=== PATIENT | male | born 1940 | race Caucasian/White ===

== ENCOUNTER 2016-05-26 23:40 | Inpatient (IN) | payer OTHER, MEDICARE ==
[~2016-05-26] VITALS: Ht 185.4 cm; Wt 96.7 kg
[2016-05-27] MEDS ORDERED: SODIUM CHLORIDE 0.9% 1000ML 1,000 ML IV STA (00:13)
[2016-05-27 00:25] LABS: BASO % 0.6 %; BASO ABS # 0.06 K/uL (0-0.2); COMPLETE YES; EOS % 3.3 %; HEMATOCRIT 43.3 % (42-52); IG% 0.1 %; LYMPH % 37.8 %; LYMPH ABS # 3.79 K/uL (1.2-3.4); MEAN CELL VOLUME 83.4 fL (80-100); MEAN CORPUSCULAR HEMOGLOBIN 28.9 pg (25-34); MEAN CORPUSCULAR HGB CONC 34.6 g/dl (32-36); MEAN PLATELET VOLUME 9.6 fL (7.4-10.4); MONO % 8.7 %; NEUT % 49.5 %; PLATELET COUNT 288 K/uL (130-400); RED BLOOD COUNT 5.19 M/uL (4.7-6.1); WHITE BLOOD COUNT 10.02 K/uL (4.8-10.8)
[2016-05-27 00:37] LABS: PROTHROMBIN TIME (PATIENT) 10.5 SECONDS (9.0-12.0)
[2016-05-27 00:47] LABS: ALT/SGPT 38 U/L (12-78); AST/SGOT 20 U/L (15-37); BLOOD UREA NITROGEN 25 mg/dl (7-18); BUN/CREATININE RATIO 25.1 (10-20); CALCIUM 9.5 mg/dl (8.5-10.1); CARBON DIOXIDE 25 mmol/L (21-32); CHLORIDE 109 mmol/L (98-107); GLUCOSE 181 mg/dl (70-99); MAGNESIUM 1.9 mg/dl (1.8-2.4); POTASSIUM 3.8 mmol/L (3.5-5.1); SODIUM 144 mmol/L (136-145)
[2016-05-27] MEDS ORDERED: GABA-112 PO (00:50)
[2016-05-27] MEDS ORDERED: AMLO-110 PO (00:50)
[2016-05-27] MEDS ORDERED: GLC/500 PO (00:50)
[2016-05-27] MEDS ORDERED: FOLITAB21 PO (00:50)
[2016-05-27] MEDS ORDERED: FERR1TAB23 (00:50)
[2016-05-27] MEDS ORDERED: LOSA50TA6 PO (00:50)
[2016-05-27] MEDS ORDERED: OXYB5TAB PO (00:50)
[2016-05-27] MEDS ORDERED: CLOP1TAB15 PO (00:50)
[2016-05-27] MEDS ORDERED: CHOL2000 PO (00:50)
[2016-05-27] MEDS ORDERED: SIMV20TA2 PO (00:50)
[2016-05-27 00:55] LABS: ALKALINE PHOSPHATASE 95 U/L (45-117); CKMB/CK RATIO 2.4 (0-3.0)
--- NOTE | 2016-05-27 02:30 | EMERGENCY ROOM VISIT NOTE ---
History Report prepared by Roibjanneth: Nancy Avitia Under the Supervision of: Dr. Omar Gilliland D.O. First contact with patient: 00:06 Chief Complaint: STROKE SYMPTOMS Stated Complaint: STROKE SYMS History of Present Illness The patient is a 75 year old male who presents to the Emergency Room with complaints of stroke-like symptoms over the past few days. Per patient's , the patient has a history of a brain stem stroke. On Tuesday of this week, she noticed that he was having a slight left sided facial droop. He notes that he had a "water-like" appearance to his vision which has resolved. She called the patient's PCP and had an MRI scheduled. He had his MRI this morning as well as a carotid ultrasound. A few hours ago, the patient received a call to go to the emergency room because his MRI revealed that the patient may have had a stroke. Currently, he is feeling well other than some left sided weakness. He notes that he is able to walk normally other than some left leg discomfort which he attributes to chronic problems since a left knee surgery several months ago. He was put on Plavix on Tuesday. Source of History: patient, spouse/significant other Onset: Tuesday Position: other (global) Quality: other (stroke-like symptoms) Timing: other (persistent) Associated Symptoms: + weakness (left side) Note: Other symptoms: left facial droop Review of Systems See HPI for pertinent positives & negatives. A total of 10 systems reviewed and were otherwise negative. Past Medical & Surgical Medical Problems: (1) Diabetes (2) HTN (hypertension) (3) Stroke Family History Cancer Diabetes mellitus Gallbladder disease Heart disease Hypertension Kidney disease Lung disease Seizures No pertinent family history stated. Social History Smoking Status: Never Smoker Marital Status: Housing Status: lives with significant other Current/Historical Medications Scheduled Amlodipine (Norvasc), 5 MG PO DAILY Cholecalciferol (Vitamin D3), 1 CAP PO DAILY Clopidogrel (Plavix), 75 MG PO DAILY Folic Ajot-Cibblfnptz-Qlfmseuu (Folbic), 1 TAB PO DAILY Losartan Potassium (Cozaar), 1 TAB PO DAILY Metformin Hcl (Glucophage), 500 MG PO BID Oxybutynin Chloride (Oxybutynin Chloride Er), 1 TAB PO DAILY Simvastatin (Zocor), 1 TAB PO DAILY Miscellaneous Medications Ferrous Sulfate (Iron) Gabapentin (Neurontin), 100 MG PO Physical Exam Vital Signs Date Time Temp Pulse Resp B/P Pulse Ox O2 Delivery O2 Flow Rate FiO2 05/27/16 02:00 65 18 137/75 96 Room Air 05/27/16 01:00 73 18 129/71 94 Room Air 05/26/16 23:56 83 05/26/16 23:41 36.5 88 20 172/92 96 Room Air Physical Exam VITAL SIGNS: were reviewed as above. GENERAL:Non-toxic in appearance. SKIN: Warm dry and pink. HEAD: Normocephalic and atraumatic. OROPHARYNX: Is clear and moist NECK: Supple without lymphadenopathy or meningismus. LUNGS: clear. HEART: Regular rate and rhythm. ABDOMEN: Soft and nontender. EXTREMITIES: Warm and well perfused. NEUROLOGICALLY: Awake alert and oriented. There is no pronator drift. Cerebellar testing is within normal limits. There is no nystagmus. Minimal left lower facial droop, mostly appreciated by patients , not obvious on my exam. Speech is clear. Vision is grossly normal. MUSCULOSKELETAL: Good muscle tone. No evidence of trauma. Medical Decision & Procedures ER Provider Diagnostic Interpretation: Radiology results and stated below per my review and radiologist interpretation: Carotid artery US on 05/27/2016 at [facility]: Less than 50% stenosis of the bilateral internal carotid arteries. MRI of the brain at 1650 PM on 05/27/2016 at [facility]: acute to subacute small vessel infarct of the right ventral felisha, also a 2-3 mm subacute infarct right frontal white matter. CT HEAD: No acute intracranial hemorrhage. No evidence of intracranial mass, extra-axial fluid collection, or hydrocephalus. White matter hypodensities, which are nonspecific but are most likely related to moderate to severe chronic small vessel ischemic changes. Evaluation for acute ischemia limited in setting of extensive white matter hypodensities, but no evidence of acute territorial infarct. Global cerebral volume loss. Internal carotid artery calcifications. Visualized paranasal sinuses and mastoid air cells are clear. Radiologist: Michael Mejia MD. Read at 0032. Chest x-ray per my interpretation: No acute disease, no pneumonia or pneumothorax. Laboratory Results 05/27/16 00:13 Red Blood Count 5.19, Mean Corpuscular Volume 83.4, Mean Corpuscular Hemoglobin 28.9, Mean Corpuscular Hemoglobin Concent 34.6, Mean Platelet Volume 9.6, Neutrophils (%) (Auto) 49.5, Lymphocytes (%) (Auto) 37.8, Monocytes (%) (Auto) 8.7, Eosinophils (%) (Auto) 3.3, Basophils (%) (Auto) 0.6, Neutrophils # (Auto) 4.96, Lymphocytes # (Auto) 3.79, Monocytes # (Auto) 0.87, Eosinophils # (Auto) 0.33, Basophils # (Auto) 0.06 05/27/16 00:13 Test 05/27/16 00:13 White Blood Count 10.02 K/uL (4.8-10.8) Red Blood Count 5.19 M/uL (4.7-6.1) Hemoglobin 15.0 g/dL (14.0-18.0) Hematocrit 43.3 % (42-52) Mean Corpuscular Volume 83.4 fL (80-100) Mean Corpuscular Hemoglobin 28.9 pg (25-34) Mean Corpuscular Hemoglobin Concent 34.6 g/dl (32-36) Platelet Count 288 K/uL (130-400) Mean Platelet Volume 9.6 fL (7.4-10.4) Neutrophils (%) (Auto) 49.5 % Lymphocytes (%) (Auto) 37.8 % Monocytes (%) (Auto) 8.7 % Eosinophils (%) (Auto) 3.3 % Basophils (%) (Auto) 0.6 % Neutrophils # (Auto) 4.96 K/uL (1.4-6.5) Lymphocytes # (Auto) 3.79 K/uL (1.2-3.4) Monocytes # (Auto) 0.87 K/uL (0.11-0.59) Eosinophils # (Auto) 0.33 K/uL (0-0.5) Basophils # (Auto) 0.06 K/uL (0-0.2) RDW Standard Deviation 42.2 fL (36.4-46.3) RDW Coefficient of Variation 13.8 % (11.5-14.5) Immature Granulocyte % (Auto) 0.1 % Immature Granulocyte # (Auto) 0.01 K/uL (0.00-0.02) Prothrombin Time 10.5 SECONDS (9.0-12.0) Prothromb Time International Ratio 1.0 (0.9-1.1) Activated Partial Thromboplast Time 25.4 SECONDS (21.0-31.0) Partial Thromboplastin Ratio 1.0 Anion Gap 10.0 mmol/L (3-11) Est Creatinine Clear Calc Drug Dose 81.6 ml/min Estimated GFR () 85.6 Estimated GFR (Non- 73.8 BUN/Creatinine Ratio 25.1 (10-20) Calcium Level 9.5 mg/dl (8.5-10.1) Magnesium Level 1.9 mg/dl (1.8-2.4) Total Bilirubin 0.4 mg/dl (0.2-1) Direct Bilirubin 0.1 mg/dl (0-0.2) Aspartate Amino Transf (AST/SGOT) 20 U/L (15-37) Alanine Aminotransferase (ALT/SGPT) 38 U/L (12-78) Alkaline Phosphatase 95 U/L (45-117) Total Creatine Kinase 156 U/L (39-308) Creatine Kinase MB 3.7 ng/ml (0.5-3.6) Creatine Kinase MB Ratio 2.4 (0-3.0) Troponin I < 0.015 ng/ml (0-0.045) Total Protein 6.5 gm/dl (6.4-8.2) Albumin 3.8 gm/dl (3.4-5.0) Lipase 141 U/L (73-393) Thyroid Stimulating Hormone (TSH) 1.950 uIu/ml (0.300-4.500) Laboratory results as stated above per my review. Medications Administered Medications (Trade) Dose Ordered Sig/Effie Route Start Time Stop Time Status Last Admin Dose Admin Sodium Chloride (Nss 1000ml) 1,000 ml @ 999 mls/hr Q1H1M STAT IV 05/27/16 00:13 05/27/16 01:13 DC 05/27/16 00:13 999 MLS/HR ECG Indication: other (stroke symptoms) Rate (beats per minute): 76 Rhythm: sinus rhythm Findings: 1st degree AV block, no ectopy, other (no acute injury) ED Course 0008: Previous medical records from [facility] were reviewed. The patient was evaluated in room A9. A complete history and physical examination was performed. 0013: Ordered NSS 1000 ml @ 999 mls/hr IV. 0111: I discussed the case with Randi Pruitt Neurology. She recommended hospitalizing the patient. 0115: On reevaluation, the patient is resting comfortably. I discussed the results and findings with him. He verbalized agreement of the treatment plan. 0130: I discussed the case with Dr. Jan Villalta. The patient will be evaluated for further management. Medical Decision Differential includes acute coronary syndrome, myocardial infarction, CVA, TIA, anemia, infection, pneumonia, UTI, pyelonephritis, poor nutrition, dehydration, electrolyte disturbance,hypoglycemia. This is a 75-year-old male who presents to the ED with a chief complaint of a CVA. The patient had onset of a left facial droop on Tuesday. The patient was seen by the PCP and started on Plavix. He had an outpatient ultrasound of the carotid arteries and MRI of the brain today. The patient was told to come in to the ED tonight because of his abnormal MRI earlier today. The patient has no additional symptoms. His physical exam reveals no obvious findings. Neurological exam was also unremarkable. The feels there is a slight left facial droop but this is not obvious. Initial blood pressure was 172/92. The patient had an outpatient MRI that has been reviewed. Details above. There is evidence of 2 small subacute infarcts. CT scan of the brain did not show acute process. Small vessel disease was noted. Blood work is unremarkable. EKG shows a sinus rhythm. Chest x-ray did not show acute disease. I spoke with Dr. Salgado about the patient. She suggested patient be admitted. I spoke with Dr. Rueda who will see the patient for admission. Consults Time Called: 010 Consulting Physician: Randi Pruitt Neurology Returned Call: 011 I discussed the case with her. She recommended hospitalizing the patient. Additional Consults: Time Called: 011 Consulted Physician: Dr. Jan Bryan Hospitalist Returned Call: 013 Additional Comments: I discussed the case with him. The patient will be evaluated for further management. Impression Primary Impression: CVA (cerebral vascular accident) Scribe Attestation The scribe's documentation has been prepared under my direction and personally reviewed by me in its entirety. I confirm that the note above accurately reflects all work, treatment, procedures, and medical decision making performed by me. Departure Information Dispostion Being Evaluated By Hospitalist Referrals No Doctor, Assigned (PCP) Patient Instructions My [facility]
[2016-05-27 02:57] VITALS: O2SAT 97; Ht 185.4 cm; Wt 96.7 kg
[2016-05-27] MEDS ORDERED: PHARMACIST DISCHARGE MED REC CONSULT PRN (03:00)
[2016-05-27] MEDS ORDERED: ACETAMINOPHEN 325 MG TAB PO PRN (03:00)
[2016-05-27] MEDS ORDERED: TRAMADOL HCL 50 MG TAB PO PRN (03:00)
[2016-05-27] MEDS ORDERED: ONDANSETRON INJ 2 MG/ML 2 ML VIAL IV PRN (03:00)
[2016-05-27] MEDS ORDERED: MoRPHine SULFATE 4 MG/ML 1 ML CARP\\VIAL IV PRN (03:00)
[2016-05-27] MEDS ORDERED: NITROGLYCERIN 0.4 MG SL PER TAB CHARGE SL PRN (03:00)
[2016-05-27] MEDS ORDERED: GLUCOSE 40% GEL 15 GM TUBE PO PRN (03:00)
[2016-05-27] MEDS ORDERED: GLUCOSE 10 TABS/TUBE PO PRN (03:00)
[2016-05-27] MEDS ORDERED: LACTATED RINGER'S 1000ML 1,000 ML IV ONE (03:00)
[2016-05-27] MEDS ORDERED: DEXTROSE 50% 50 ML SYR IV PRN (03:00)
[2016-05-27] MEDS ORDERED: GLUCAGON FOR INJ 1 MG VIAL SQ PRN (03:00)
[2016-05-27] MEDS ORDERED: INSULIN GLARGINE SOLOSTAR 100 UNITS/ML 3 ML PEN SC ONE (03:15)
--- NOTE | 2016-05-27 04:27 | HISTORY & PHYSICAL EXAMINATION ---
DATE OF ADMISSION: 05/27/2016 PRIMARY CARE DOCTOR: Dr. Rayo. History obtained from the patient, patient's and records. CHIEF COMPLAINT: Stroke-like symptoms, abnormal MRI. 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 Recent confinement at [facility] for right pontine ischemic CVA sp TPA at [facility] ER last 12/2015. Px presented w/ some left sided weakness, slurred speech symptoms along w/ dysphasia/L blurred vision sx as per px/. Marked improvement of neurologic deficits. Some residual weakness on LUE as per px. Px discharged on aspirin and statin which patient has been compliant with. Three days ago, patient was noted by to have some drooping on the L lower face. px also noted some gait imbalance, unsteadiness leading to a fall. Some dizziness described as lightheadedness. No visual, vertigo sx. L side weaker than usual as per px. Px later seen at PCP's office that day. mild L facial droop on PCP exam as per note. Plavix added to px ASA. Outpx MRI brain, carotid dopplers scheculed yesterday at [facility]. Minimal improvement in deficits as per px/. Two nights ago px noted bladder incontinence. No fever/chills. MRI of the brain yesterday showed acute to subacute small vessel infarct right ventral felisha, 2-3 mm subacute age infarct right frontal white matter, chronic small vessel infarcts right lateral felisha and left thalamus. Recommend MRI head and neck for further evaluation of underlying etiology of infarcts. Large vertebral artery appears hypoplastic and the is slightly diminished suggestive of slow flow of proximal stenosis, occlusion. Carotid Dopplers were also done which showed bilateral stenosis of the ICA less than 50%. PX sent to the ER by PCP for abn MRI results. MEDICAL HISTORY: As above. elective L knee surgery contemplated 06/2016 at [facility] for worsening L knee OA. SURGERIES: Prostate robotic surgery, appendectomy, cholecystectomy. HOME MEDICATIONS: Include aspirin, Plavix, oxybutynin, Zocor, metformin, Cozaar, amlodipine, iron, Neurontin. ALLERGIES: No known drug allergies. FAMILY HISTORY: There is a family history of diabetes. PERSONAL AND SOCIAL HISTORY: Nonsmoker, no chronic intake of alcoholic beverages. Retired senior net engineer. REVIEW OF SYSTEMS: As per HPI. all other ROS negative PHYSICAL EXAMINATION: VITAL SIGNS: Blood pressure was noted to be 129/71, pulse rate 70, RR 18, temperature 36.5, sats 94 on room air. GENERAL: Noted to be slightly anxious, no respiratory distress, minimal dysarthria. SKIN: Normal color. HEENT: [place] palpebral conjunctiva. Dry mucosa. subtle facial droop, left. NECK: Supple, no JVD. CHEST: Clear to auscultation. HEART: RRR, no murmur. ABDOMEN: Soft. EXTREMITIES: No edema, chronic tenderness on the left knee. NEUROLOGIC: Subtle facial asymmetry, decreased strength on the left upper extremity; decreased strength on the LLE vs RLE (chronic as per px from chronic L knee OA as per px); gait and stance not assessed no pronator drift LABORATORY DATA: Hemoglobin was noted to be 15, white cells 9, platelets 288. Sodium 140, potassium 4.8, chloride 109, CO2 25, BUN 10, creatinine 1, glucose 181. Hemoglobin A1c from December 2015 was 6.8. IMAGING DATA: Chest x-ray, atelectasis. CT of the head showed no acute intracranial hemorrhage, white matter hypodensities unspecific EKG rate 75, normal sinus rhythm, first degree AV block. no ischemia ASSESSMENT: 1. Recurrent cerebrovascular accident. two subacute foci on new MRI Concern for embolic phenomenon Hx pontine cerebrovascular accident sp TPA (12/2015) 2. bladder incontinence ? secondary to cerebrovascular accident history of overactive bladder dysfunction as per records history of prostate cancer sp surgery 3. HTN, patient normotensive. 4. hyperlipidemia on statin tx 5. DM2 on oral meds well controlled as of recent outpx HgA1c 6. history of neuropathy 7. OLIVER, px currently not using CPAP ff technical issues 8. severe OA, L knee surgery at [facility] contemplated next month Px and frustrated that new stroke may lead to deferment of planned surgery PLAN: PCU neuro checks continue antiplatelet, statin meds Neurology consult. RE Recurrent CVA. ER MD already in touch with Dr. Beckham, neurologist money manager. She recommends MRA of the brain, 2D echo, tele monitoring. Further management as per Neurology. PT/OT eval Urology consult RE incontinence. ISS BG goal 140-180, px due for hemoglobin A1c check DVT prophylaxis, Lovenox subQ. Full code. MTDD
[2016-05-27 06:21] LABS: ESTIMATED AVERAGE GLUCOSE 163 mg/dl; HA1C FLAG Normal (Normal)
[2016-05-27] MEDS: INSULIN ASPART 100 UNITS/ML 3 ML PEN SC SCH ×4 (07:00→20:35)
--- NOTE | 2016-05-27 07:16 | DIAGNOSTIC IMAGING REPORT ---
CT SCAN OF THE BRAIN WITHOUT IV CONTRAST CLINICAL HISTORY: Change in mental status. Weakness. COMPARISON STUDY: No priors. TECHNIQUE: Unenhanced axial CT scan of the brain is performed from the vertex to the skull base. CT DOSE: 614.27 mGy.cm FINDINGS: Brain parenchyma: There are age-related involutional changes noting moderate patchy subcortical and periventricular microangiopathic change. There is no hemorrhage, mass effect, or evidence of acute territorial ischemia by CT criteria. Luu-white matter is preserved. No extra-axial fluid collection is seen. Ventricles, sulci, cisterns: Prominent secondary to involutional change. Intracranial vasculature: There is atherosclerotic calcification of the cavernous carotid and vertebral arteries. Calvarium: Unremarkable. Sinuses and mastoids: The visualized paranasal sinuses are clear. The mastoid air cells are well pneumatized. Orbits: The bony orbits are grossly intact. IMPRESSION: Senescent changes as above with no hemorrhage, mass effect, or evidence of acute territorial ischemia by CT criteria. Electronically signed by: Aaron Castorena M.D. 05/27/2016 7:15 AM Dictated Date/Time: 05/27/2016 7:13 AM
--- NOTE | 2016-05-27 07:54 | DIAGNOSTIC IMAGING REPORT ---
SINGLE VIEW CHEST CLINICAL HISTORY: Weakness. Change in mental status. FINDINGS: An AP, portable, upright chest radiograph is obtained. No prior studies are available for comparison at the time of dictation. The examination is degraded by portable technique and patient rotation. The heart is enlarged and there is mild atherosclerotic calcification of the thoracic aorta. There are low lung volumes and bibasilar atelectasis. Trace pleural effusions are suspected. No airspace consolidation is identified typical for pneumonia. No pneumothorax is seen. The skeletal structures are osteopenic. The bony thorax is grossly intact. IMPRESSION: 1. Cardiac enlargement without radiographic evidence of congestive failure. 2. Low lung volumes and bibasilar atelectasis. 3. Suspect trace pleural effusions. There is no airspace consolidation identified typical for pneumonia. Electronically signed by: Aaron Castorena M.D. 05/27/2016 7:53 AM Dictated Date/Time: 05/27/2016 7:51 AM
[2016-05-27 08:00] VITALS: BP 155/77; PULSE 64; TEMP 36.6; O2SAT 97; O2SAT 98
[2016-05-27] MEDS: GABAPENTIN 100 MG CAP PO SCH ×3 (08:04→20:38)
[2016-05-27] MEDS: CLOPIDOGREL BISULFATE 75 MG TAB PO SCH (08:04)
[2016-05-27] MEDS: ENOXAPARIN 40 MG/0.4 ML SYR SC SCH (08:29)
[2016-05-27] MEDS ORDERED: OXYBUTYNIN CHLORIDE 5 MG TABCR PO SCH (09:00)
[2016-05-27 11:06] VITALS: BP 141/78; PULSE 62; TEMP 37; O2SAT 95
[2016-05-27 12:30] LABS: URINE APPEARANCE CLEAR (CLEAR); URINE BILIRUBIN NEG (NEG); URINE COLOR YELLOW; URINE NITRITE NEG (NEG); URINE SPECIFIC GRAVITY 1.019 (1.000-1.030); UROBILINOGEN NEG (NEG); ZZUR CULT IF INDIC CLEAN CATCH NO
[2016-05-27 12:35] LABS: MANUAL MICROSCOPIC REQUIRED? NO; REVIEW REQ? NO
--- NOTE | 2016-05-27 13:51 | Neurology Consultation ---
Neurology Consultation Date of Consultation: May 27, 2016. Attending Physician: Angela Delacruz M.D. Primary Care Physician: Mohsen Rayo D.O. Reason for Consultation: recurrent stroke History of Present Illness Source: patient Serjio is a 75 year old male who has a H previous stroke, HTN, DM, peripheral neuropathy. He has a history of brain stem stroke. Tuesday of this week his noticed some slight left sided facial droop. He notes that he had a "water-like" appearance to his vision which has resolved. He had his MRI this morning as well as a carotid ultrasound. He was told to come to the ED because the MRI revealed that the patient may have had a stroke. He notes that he is able to walk normally other than some left leg discomfort which he attributes to chronic problems since a left knee surgery several months ago. His previous stroke he was seen at the [facility] given [place] [facility] [place] He had a right pontine superior CVA with mild dysarthria slurred speech , The new MRI showed right frontal chronic small vessel infarcts and L thalamus and new right pontine stroke. Currently he is working with PT/OT and states he has balance issues because of his peripheral neuropathy but he thinks his balance is worse. He states his vision is now back to baseline. denies CP, SOB, abdominal pain, double vision, N , V. Social History Marital Status: Housing Status: lives with significant other Allergies Coded Allergies: No Known Allergies (Unverified , 05/27/16) Current Inpatient Medications Current Inpatient Medications Medications (Trade) Dose Ordered Sig/Effie Route Start Time Stop Time Status Last Admin Dose Admin Enoxaparin Sodium (Lovenox Inj) 40 mg Q24H SC 05/27/16 09:00 06/26/16 08:59 05/27/16 08:29 40 MG Acetaminophen (Tylenol Tab) 650 mg Q4H PRN PO 05/27/16 03:00 06/26/16 02:59 Nitroglycerin (Nitrostat Tab) 0.4 mg UD PRN SL 05/27/16 03:00 06/26/16 02:59 Insulin Aspart (novoLOG ASPART) SLIDING SCALE If C... ACHS SC 05/27/16 07:00 06/26/16 06:59 Glucose (Glucose 40% Gel) 15-30 GRAMS 15 GRAMS... UD PRN PO 05/27/16 03:00 06/26/16 02:59 Glucose (Glucose Chew Tab) 4-8 Tablets 4 Tabl... UD PRN PO 05/27/16 03:00 06/26/16 02:59 Dextrose (Dextrose 50% 50ML Syringe) 25-50ML OF 50% DW IV FOR... UD PRN IV 05/27/16 03:00 06/26/16 02:59 Glucagon (Glucagon Inj) 1 mg UD PRN SQ 05/27/16 03:00 06/26/16 02:59 Miscellaneous Information (Pharmacist Discharge Med Rec Consult) 1 ea UD PRN N/A 05/27/16 03:00 06/26/16 02:59 Clopidogrel Bisulfate (plAVix TAB) 75 mg DAILY PO 05/27/16 09:00 06/26/16 08:59 05/27/16 08:04 75 MG Gabapentin (Neurontin Cap) 100 mg TID PO 05/27/16 09:00 06/26/16 08:59 05/27/16 08:04 100 MG Oxybutynin Chloride (Ditropan-Xl Tab) 5 mg DAILY PO 05/27/16 09:00 06/26/16 08:59 05/27/16 08:04 5 MG Simvastatin (Zocor Tab) 20 mg HS PO 05/27/16 21:00 06/26/16 20:59 Morphine Sulfate (MoRPHine SULFATE INJ) 4 mg Q3H PRN IV 05/27/16 03:00 06/10/16 02:59 Tramadol HCl (Ultram Tab) 25 mg Q6H PRN PO 05/27/16 03:00 06/26/16 02:59 Ondansetron HCl (Zofran Inj) 4 mg Q6H PRN IV 05/27/16 03:00 06/26/16 02:59 Insulin Glargine 5 unit 5 unit DAILY SC 05/28/16 09:00 06/27/16 08:59 Lactated Ringer's (Lr 1000ml) 1,000 ml @ 75 mls/hr [id number] ONCE IV 05/27/16 03:00 05/27/16 16:19 05/27/16 03:19 75 MLS/HR Physical Exam Vital Signs (Past 24 Hrs): Date Time Temp Pulse Resp B/P Pulse Ox O2 Delivery O2 Flow Rate FiO2 05/27/16 12:00 Room Air 05/27/16 11:06 37.0 62 14 141/78 95 Room Air 05/27/16 08:00 36.6 64 18 155/77 97 Nasal Cannula 2.0 05/27/16 08:00 98 Room Air 05/27/16 07:07 58 05/27/16 06:48 56 18 135/84 98 Room Air 05/27/16 03:48 Room Air 05/27/16 03:04 63 05/27/16 02:57 97 Room Air 05/27/16 02:50 36.5 63 18 137/75 96 05/27/16 02:19 63 05/27/16 02:00 65 18 137/75 96 Room Air 05/27/16 01:00 73 18 129/71 94 Room Air 05/26/16 23:56 83 05/26/16 23:41 36.5 88 20 172/92 96 Room Air Physical Exam: Constitutional: appearance nourished, healthy and normal Ears, Nose, Mouth and Throat: mucous membranes moist, no injection and skin normal, eyes normal Cardiovascular: normal S-1 and S-2 and regular rate and rhythm Respiratory: clear to auscultation (CTA) and no rales, rhonchi or wheeze Musculoskeletal: no peripheral edema Skin: no stigmata of neurocutaneous disease noted and normal and intact Eyes: extraocular muscles intact (EOMI) and pupils equal, round and reactive to light (PERRL) left lid droop NEUROLOGIC EXAMINATION: Mental status: Alert and interactive Oriented to full date and location, closed eyes tuck out tongue and pointed to the ceiling Oriented to person Speech dysarthric, and slight slurred speech Cranial Nerves left flattening of nasolabial fold, left eye droop, tongue midline Reflexes: Deep tendon reflexes were symmetrical and graded 2/5 decreased in LE. Plantar responses were neutral Sensory: decreased sensation to cool touch and vibration bilaterally to mid oro Coordination: Romberg positive drift to left with eyes closed heel to oro dysmetric left slight bipass on left with finger to nose Gait/Stance: Posture normal. Gait normal: unsteady with standing Motor: Negative for pronator drift of out stretched arms with eyes closed. Strength: biceps triceps deltoids hand inpatient care manager rn 5/5 bilaterally, hip flex patellar flex ext plantar flex ext 5/5 bilaterally Laboratory Results Past 24 Hours: 05/27/16 00:13 Red Blood Count 5.19, Mean Corpuscular Volume 83.4, Mean Corpuscular Hemoglobin 28.9, Mean Corpuscular Hemoglobin Concent 34.6, Mean Platelet Volume 9.6, Neutrophils (%) (Auto) 49.5, Lymphocytes (%) (Auto) 37.8, Monocytes (%) (Auto) 8.7, Eosinophils (%) (Auto) 3.3, Basophils (%) (Auto) 0.6, Neutrophils # (Auto) 4.96, Lymphocytes # (Auto) 3.79, Monocytes # (Auto) 0.87, Eosinophils # (Auto) 0.33, Basophils # (Auto) 0.06 05/27/16 00:13 Test 05/27/16 00:13 05/27/16 11:14 05/27/16 11:20 White Blood Count 10.02 K/uL (4.8-10.8) Red Blood Count 5.19 M/uL (4.7-6.1) Hemoglobin 15.0 g/dL (14.0-18.0) Hematocrit 43.3 % (42-52) Mean Corpuscular Volume 83.4 fL (80-100) Mean Corpuscular Hemoglobin 28.9 pg (25-34) Mean Corpuscular Hemoglobin Concent 34.6 g/dl (32-36) Platelet Count 288 K/uL (130-400) Mean Platelet Volume 9.6 fL (7.4-10.4) Neutrophils (%) (Auto) 49.5 % Lymphocytes (%) (Auto) 37.8 % Monocytes (%) (Auto) 8.7 % Eosinophils (%) (Auto) 3.3 % Basophils (%) (Auto) 0.6 % Neutrophils # (Auto) 4.96 K/uL (1.4-6.5) Lymphocytes # (Auto) 3.79 K/uL (1.2-3.4) Monocytes # (Auto) 0.87 K/uL (0.11-0.59) Eosinophils # (Auto) 0.33 K/uL (0-0.5) Basophils # (Auto) 0.06 K/uL (0-0.2) RDW Standard Deviation 42.2 fL (36.4-46.3) RDW Coefficient of Variation 13.8 % (11.5-14.5) Immature Granulocyte % (Auto) 0.1 % Immature Granulocyte # (Auto) 0.01 K/uL (0.00-0.02) Prothrombin Time 10.5 SECONDS (9.0-12.0) Prothromb Time International Ratio 1.0 (0.9-1.1) Activated Partial Thromboplast Time 25.4 SECONDS (21.0-31.0) Partial Thromboplastin Ratio 1.0 Anion Gap 10.0 mmol/L (3-11) Est Creatinine Clear Calc Drug Dose 81.6 ml/min Estimated GFR () 85.6 Estimated GFR (Non- 73.8 BUN/Creatinine Ratio 25.1 (10-20) Estimated Average Glucose 163 mg/dl Hemoglobin A1c 7.3 % (4.5-5.6) Calcium Level 9.5 mg/dl (8.5-10.1) Magnesium Level 1.9 mg/dl (1.8-2.4) Total Bilirubin 0.4 mg/dl (0.2-1) Direct Bilirubin 0.1 mg/dl (0-0.2) Aspartate Amino Transf (AST/SGOT) 20 U/L (15-37) Alanine Aminotransferase (ALT/SGPT) 38 U/L (12-78) Alkaline Phosphatase 95 U/L (45-117) Total Creatine Kinase 156 U/L (39-308) Creatine Kinase MB 3.7 ng/ml (0.5-3.6) Creatine Kinase MB Ratio 2.4 (0-3.0) Troponin I < 0.015 ng/ml (0-0.045) Total Protein 6.5 gm/dl (6.4-8.2) Albumin 3.8 gm/dl (3.4-5.0) Lipase 141 U/L (73-393) Thyroid Stimulating Hormone (TSH) 1.950 uIu/ml (0.300-4.500) Bedside Glucose 149 mg/dl (70-99) Urine Color YELLOW Urine Appearance CLEAR (CLEAR) Urine pH 5.0 (4.5-7.5) Urine Specific [place] 1.019 (1.000-1.030) Urine Protein NEG (NEG) Urine Glucose (UA) 3+ (NEG) Urine Ketones NEG (NEG) Urine Occult Blood NEG (NEG) Urine Nitrite NEG (NEG) Urine Bilirubin NEG (NEG) Urine Urobilinogen NEG (NEG) Urine Leukocyte Esterase NEG (NEG) Imaging CT head with no new findings Impression 75 year old male with new onset stroke Plan 1. PT/OT speech for any discharge needs 2. Plavix 75 and aspirin 81 mg duel therapy for 3 months unless contra indication 3. would push MRI through to [facility] system 4. TTE pending 5. if arrythmia is not captured would order ZIO patch for evaluation as out patient 6. optimize DM and HTN management 7. permissive HTN for now 8. cholesterol LDL <70 9. further recommendations once work up is completed P I have seen and discussed above patient with Dr Lanette Beckham, neurology Pt seen and examined. Pt with brainstem stroke in Dec 25 which presented with imbalance and L hemiparesis. TPA at [facility], xferred to [place]. DC on ASA and statin.5 d INFORMATION ASSURANCE SPECIALIST brief blurred vis, 2 d captain room service increased L facial droop, imbalance and L weakness. Plavix added, sent for MRI. MRI done outpt in [facility] system /shows a diffusion wt abnl in R felisha and a tiny diffusion abnl in R frontal region. Pt exam notable for mild dysarthria, flattened LNLF and mild L hemiparesis with L drift and decreased L RAYO and mild dystaxia on left. P MRA neck head. Consider MARCIE as new infarcts, although small are in 2 different vasc distribution. Consider Cardionet or Ziopatch as outpt to r/o occult afib. Asa and Plavix at present. Will likely need inpt rehab. Dr Murrieta will see pt tomorrow. ISAK Beckham MD
[2016-05-27] MEDS ORDERED: PERFLUTREN LIPID MICROSPHERE (DEFINITY) IV ONE (15:25)
[2016-05-27 15:50] VITALS: BP 145/73; PULSE 59; TEMP 36.4; O2SAT 96
[2016-05-27] MEDS ORDERED: ASPIRIN 81 MG ECTAB PO ONE (16:45)
[2016-05-27 19:20] VITALS: BP 156/82; PULSE 60; TEMP 36.6; O2SAT 95
--- NOTE | 2016-05-27 19:33 | Progress Note ---
Medicine Progress Note Date & Time of Visit: May 27, 2016 at 19:16. Subjective Pt was seen and examined Lying in bed with no distress denies any chest pain, palpitation, dizziness and SOB Objective Last 8 Hrs Date Time Temp Pulse Resp B/P Pulse Ox O2 Delivery O2 Flow Rate FiO2 05/27/16 16:00 Room Air 05/27/16 15:50 36.4 59 20 145/73 96 Room Air 05/27/16 12:00 Room Air Physical Exam: General- no acute distress Head- atraumatic Eyes- PERRL, EOMI ENT- oropharynx clear Neck- supple, no JVD Lungs- clear to auscultation and percussion Heart- regular rhythm Abdomen- normal bowel sounds, soft Extremities- no pretibial edema, no calf tenderness Neuro- alert, oriented x 3; PERRL, EOMI; left facial droop; no dysarthria; strength decrease in Left side Skin- warm & dry Laboratory Results: Last 24 Hours Test 05/27/16 00:13 05/27/16 07:36 05/27/16 11:14 05/27/16 11:20 White Blood Count 10.02 K/uL Red Blood Count 5.19 M/uL Hemoglobin 15.0 g/dL Hematocrit 43.3 % Mean Corpuscular Volume 83.4 fL Mean Corpuscular Hemoglobin 28.9 pg Mean Corpuscular Hemoglobin Concent 34.6 g/dl Platelet Count 288 K/uL Mean Platelet Volume 9.6 fL Neutrophils (%) (Auto) 49.5 % Lymphocytes (%) (Auto) 37.8 % Monocytes (%) (Auto) 8.7 % Eosinophils (%) (Auto) 3.3 % Basophils (%) (Auto) 0.6 % Neutrophils # (Auto) 4.96 K/uL Lymphocytes # (Auto) 3.79 K/uL Monocytes # (Auto) 0.87 K/uL Eosinophils # (Auto) 0.33 K/uL Basophils # (Auto) 0.06 K/uL RDW Standard Deviation 42.2 fL RDW Coefficient of Variation 13.8 % Immature Granulocyte % (Auto) 0.1 % Immature Granulocyte # (Auto) 0.01 K/uL Prothrombin Time 10.5 SECONDS Prothromb Time International Ratio 1.0 Activated Partial Thromboplast Time 25.4 SECONDS Partial Thromboplastin Ratio 1.0 Sodium Level 144 mmol/L Potassium Level 3.8 mmol/L Chloride Level 109 mmol/L Carbon Dioxide Level 25 mmol/L Anion Gap 10.0 mmol/L Blood Urea Nitrogen 25 mg/dl Creatinine 1.00 mg/dl Est Creatinine Clear Calc Drug Dose 81.6 ml/min Estimated GFR () 85.6 Estimated GFR (Non- 73.8 BUN/Creatinine Ratio 25.1 Random Glucose 181 mg/dl Estimated Average Glucose 163 mg/dl Hemoglobin A1c 7.3 % Calcium Level 9.5 mg/dl Magnesium Level 1.9 mg/dl Total Bilirubin 0.4 mg/dl Direct Bilirubin 0.1 mg/dl Aspartate Amino Transf (AST/SGOT) 20 U/L Alanine Aminotransferase (ALT/SGPT) 38 U/L Alkaline Phosphatase 95 U/L Total Creatine Kinase 156 U/L Creatine Kinase MB 3.7 ng/ml Creatine Kinase MB Ratio 2.4 Troponin I < 0.015 ng/ml Total Protein 6.5 gm/dl Albumin 3.8 gm/dl Lipase 141 U/L Thyroid Stimulating Hormone (TSH) 1.950 uIu/ml Bedside Glucose 127 mg/dl 149 mg/dl Urine Color YELLOW Urine Appearance CLEAR Urine pH 5.0 Urine Specific [place] 1.019 Urine Protein NEG Urine Glucose (UA) 3+ Urine Ketones NEG Urine Occult Blood NEG Urine Nitrite NEG Urine Bilirubin NEG Urine Urobilinogen NEG Urine Leukocyte Esterase NEG Test 05/27/16 16:32 Bedside Glucose 132 mg/dl Assessment & Plan Recurrent cerebrovascular accident. two subacute foci on new MRI Concern for embolic phenomenon Continue plavix and aspirin MRA of neck and head pending Echo pending PT/OT neurology on board Urinary incontinence possible secondary to cerebrovascular accident discussed with Urology that will see pt outpatient once discharge from the hospital will cancel urology consult HTN Allow permissive HTN due to the stroke continue monitor BP . Dyslipidemia continue on statin will check lipid panel DM2 Hba1c 7.3 on (05/27/16) Continue monitor BS Severe OA of L knee Scheduled for knee surgery in June Will need to cancel any elective surgery because the risk for recurrent stroke after odds ratio for adverse event of surgery after stroke 0-3 months 14. 2 3-6 months 4.8 6-12 months 2.5 levels off after 9 months DVT px on Lovenox subq CODE STATUS FULL CODE Current Inpatient Medications: Current Inpatient Medications Medications (Trade) Dose Ordered Sig/Effie Route Start Time Stop Time Status Last Admin Dose Admin Enoxaparin Sodium (Lovenox Inj) 40 mg Q24H SC 05/27/16 09:00 06/26/16 08:59 05/27/16 08:29 40 MG Acetaminophen (Tylenol Tab) 650 mg Q4H PRN PO 05/27/16 03:00 06/26/16 02:59 Nitroglycerin (Nitrostat Tab) 0.4 mg UD PRN SL 05/27/16 03:00 06/26/16 02:59 Insulin Aspart (novoLOG ASPART) SLIDING SCALE If C... ACHS SC 05/27/16 07:00 06/26/16 06:59 Glucose (Glucose 40% Gel) 15-30 GRAMS 15 GRAMS... UD PRN PO 05/27/16 03:00 06/26/16 02:59 Glucose (Glucose Chew Tab) 4-8 Tablets 4 Tabl... UD PRN PO 05/27/16 03:00 06/26/16 02:59 Dextrose (Dextrose 50% 50ML Syringe) 25-50ML OF 50% DW IV FOR... UD PRN IV 05/27/16 03:00 06/26/16 02:59 Glucagon (Glucagon Inj) 1 mg UD PRN SQ 05/27/16 03:00 06/26/16 02:59 Miscellaneous Information (Pharmacist Discharge Med Rec Consult) 1 ea UD PRN N/A 05/27/16 03:00 06/26/16 02:59 Clopidogrel Bisulfate (plAVix TAB) 75 mg DAILY PO 05/27/16 09:00 06/26/16 08:59 05/27/16 08:04 75 MG Gabapentin (Neurontin Cap) 100 mg TID PO 05/27/16 09:00 06/26/16 08:59 05/27/16 13:41 100 MG Oxybutynin Chloride (Ditropan-Xl Tab) 5 mg DAILY PO 05/27/16 09:00 06/26/16 08:59 05/27/16 08:04 5 MG Simvastatin (Zocor Tab) 20 mg HS PO 05/27/16 21:00 06/26/16 20:59 Morphine Sulfate (MoRPHine SULFATE INJ) 4 mg Q3H PRN IV 05/27/16 03:00 06/10/16 02:59 Tramadol HCl (Ultram Tab) 25 mg Q6H PRN PO 05/27/16 03:00 06/26/16 02:59 Ondansetron HCl (Zofran Inj) 4 mg Q6H PRN IV 05/27/16 03:00 06/26/16 02:59 Insulin Glargine (Lantus Solostar Pen) 5 unit DAILY SC 05/28/16 09:00 06/27/16 08:59 Aspirin (Ecotrin Tab) 81 mg QAM PO 05/28/16 09:00 06/27/16 08:59
[2016-05-27] MEDS: SIMVASTATIN 20 MG TAB PO SCH (20:36)
[2016-05-27] MEDS ORDERED: MAGNEVIST IV PRN (22:15)
--- NOTE | 2016-05-27 22:20 | DIAGNOSTIC IMAGING REPORT ---
Brain MRA HISTORY: Stroke Stroke - Attention to [facility] [place] TECHNIQUE: 3-D [id number] MRA of the brain was performed without contrast. COMPARISON STUDY: None. FINDINGS: Occlusion or near occlusion left vertebral artery. Paravertebral is artery is dominant. Significant multilevel arterial occlusive change of the basilar. Posterior cerebrals filled primarily via the posterior communicator's. Anterior middle cerebral circulation is remarkable for the anterior cerebral circulation primarily originating from the right carotid system. Findings of mild multilevel arterial occlusive change of the middle cerebral arterial vasculature. IMPRESSION: 1. 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 2. 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 3. Multilevel arterial occlusive change basilar and posterior cerebral circulation fed via the posterior communicator's. 4. Left middle cerebral system is fed via left carotid system with apparent occlusion left left M1 segment . 5 mild multilevel arterial occlusive change of the anterior and middle cerebral circulations Electronically signed by: Aaron Alvarado M.D. 05/27/2016 10:19 PM Dictated Date/Time: 05/27/2016 10:15 PM
--- NOTE | 2016-05-27 22:22 | DIAGNOSTIC IMAGING REPORT ---
NECK MRA HISTORY: Mental status change stroke TECHNIQUE: [id number] and gadolinium-enhanced MRA of the neck was performed both before and after the intravenous administration of contrast. All measurements were calculated based on NASCET criteria. COMPARISON STUDY: None. FINDINGS: The aortic arch and proximal great vessels are widely patent. No complete occlusion and/or occlusion left vertebral vessel. Paravertebral vessel is dominant. Multilevel arterial occlusive change of the basilar. Common carotids show no major stenotic process. Indication show mild atherosclerotic change. No significant stenotic change of the carotid system is felt present. Mild arterial occlusive change is present. IMPRESSION: 1. Occlusion and/or near occlusion left vertebral artery. 2. Multilevel arterial occlusive change of the basilar. 3. No major stenotic process of the carotid systems Electronically signed by: Aaron Alvarado M.D. 05/27/2016 10:21 PM Dictated Date/Time: 05/27/2016 10:20 PM
[2016-05-28] VITALS (7 sets, daily range): BP systolic 139–163; BP diastolic 73–84; PULSE 57–70; TEMP 36.3–36.6; O2SAT 93–98
[2016-05-28] MEDS: INSULIN ASPART 100 UNITS/ML 3 ML PEN SC SCH ×4 (07:00→21:00)
[2016-05-28 07:20] LABS: BASO % 0.5 %; BASO ABS # 0.05 K/uL (0-0.2); COMPLETE YES; EOS % 2.7 %; HEMATOCRIT 42.5 % (42-52); IG% 0.2 %; LYMPH % 32.2 %; LYMPH ABS # 3.27 K/uL (1.2-3.4); MEAN CORPUSCULAR HEMOGLOBIN 28.6 pg (25-34); MEAN CORPUSCULAR HGB CONC 34.8 g/dl (32-36); MEAN PLATELET VOLUME 9.1 fL (7.4-10.4); MONO % 9.3 %; NEUT % 55.1 %; PLATELET COUNT 262 K/uL (130-400); RED BLOOD COUNT 5.18 M/uL (4.7-6.1); WHITE BLOOD COUNT 10.17 K/uL (4.8-10.8)
[2016-05-28 08:02] LABS: BUN/CREATININE RATIO 17.3 (10-20); CALCIUM 9.6 mg/dl (8.5-10.1); CREATININE 0.91 mg/dl (0.60-1.40); POTASSIUM 3.8 mmol/L (3.5-5.1)
[2016-05-28] MEDS: CLOPIDOGREL BISULFATE 75 MG TAB PO SCH (08:24)
[2016-05-28] MEDS: ENOXAPARIN 40 MG/0.4 ML SYR SC SCH (08:24)
[2016-05-28] MEDS: GABAPENTIN 100 MG CAP PO SCH ×3 (08:25→21:16)
[2016-05-28] MEDS: ASPIRIN 81 MG ECTAB PO SCH (08:25)
[2016-05-28] MEDS: INSULIN GLARGINE SOLOSTAR 100 UNITS/ML 3 ML PEN SC SCH (08:45)
--- NOTE | 2016-05-28 11:50 | ECHOCARDIOGRAM REPORT ---
*NOTICE TO RECEIVING CONSTITUTION PARTY AGENCY This information is strictly Confidential and protected under [place] law. [place] law prohibits you from making any further disclosure of this information unless further disclosure is expressly permitted by the written consent of the person to whom it pertains or is authorized by law. A general authorization for the release of medical or other information is not sufficient for this purpose. Hospital accepts no responsibility if the information is made available to any other person, INCLUDING THE PATIENT. Interpretation Summary * Name: SIVAN BOLAÑOS Study Date: 05/27/2016 02:38 PM BP: 141/78 mmHg * Patient Location: C.2T\S\S240\S\2 HR: 62 * : 1940 (M/d/yyy) Gender: Male Height: 72 in * Age: 75 yrs Ethnicity: CA Weight: 226 lb * Ordering Physician: Shabbir Montoya * Referring Physician: Self, Referred * Performed By: Yue Espinoza RDCS * * Reason For Study: STROKE * BSA: 2.2 m2 * History: STROKE * -- Conclusions -- * There is mild concentric left ventricular hypertrophy. * Left ventricular systolic function is normal. * Ejection Fraction = 60-65%. * Grade I diastolic dysfunction, (abnormal relaxation pattern). * The right ventricular systolic function is normal. * The left atrial size is normal. * Right atrial size is normal. * No significant vavular pathology. * The interatrial septum is intact with no evidence for an atrial septal defect. * Injection of contrast documented no interatrial shunt. Procedure Details * A saline contrast injection was performed to assess for cardiac shunting. * The injection was performed through an intravenous line in the right arm. * The attending nurse who injected the saline contrast was ANKIT RAMIREZ. * A total of 20 cc of agitated saline was given. * A contrast injection of Definity was performed to improve assessment of LV function. * Contrast was injected into an intravenous site in the right arm. * One vial of Definity ultrasound contrast was diluted in normal saline to a total volume of 10 ml. A total of '2' ml of solution was administered during imaging. * Lot # [id number] of Definity utilized for procedure. * Expiration date MAY 29. * The attending nurse who injected the contrast agent was ANKIT RAMIREZ. Left Ventricle * The left ventricle is normal in size. * There is mild concentric left ventricular hypertrophy. * Ejection Fraction = 60-65%. * Left ventricular systolic function is normal. * The left ventricular wall motion is normal. Right Ventricle * The right ventricle is normal size. * The right ventricular systolic function is normal. Atria * The left atrial size is normal. * Right atrial size is normal. * The interatrial septum is intact with no evidence for an atrial septal defect. * Injection of contrast documented no interatrial shunt. Mitral Valve * There is moderate mitral annular calcification. * Significant mitral regurgitation is absent. Tricuspid Valve * The tricuspid valve is not well visualized, but is grossly normal. * Significant tricuspid regurgitation is absent. Aortic Valve * The aortic valve is normal in structure and function. Pulmonic Valve * The pulmonic valve is not well visualized. Great Vessels * The aortic root and proximal ascending aorta are normal sized. Pericardium/Pleural * There is no pericardial effusion. Left Ventricular Diastolic Function * Grade I diastolic dysfunction, (abnormal relaxation pattern). MMode 2D Measurements and Calculations IVSd 1.4 cm IVSs 2.0 cm LVIDd 4.3 cm LVIDs 2.9 cm LVPWd 1.2 cm LVPWs 1.4 cm IVS/LVPW 1.1 FS 32.4 % EDV(Teich) 84.6 ml ESV(Teich) 33.0 ml EF(Teich) 61.0 % EDV(cubed) 81.3 ml ESV(cubed) 25.1 ml EF(cubed) 69.1 % % IVS thick 45.9 % % LVPW thick 17.6 % LV mass(C)d 212.3 grams LV mass(C)dI 94.6 grams/m\S\2 LV mass(C)s 198.0 grams LV mass(C)sI 88.3 grams/m\S\2 SV(Teich) 51.6 ml SI(Teich) 23.0 ml/m\S\2 SV(cubed) 56.2 ml SI(cubed) 25.1 ml/m\S\2 LVAd ap4 32.2 cm\S\2 LVLd ap4 9.0 cm EDV(MOD-sp4) 92.2 ml EDV(sp4-el) 97.6 ml LVAs ap4 18.0 cm\S\2 LVLs ap4 7.0 cm ESV(MOD-sp4) 38.0 ml ESV(sp4-el) 39.1 ml EF(MOD-sp4) 58.8 % EF(sp4-el) 60.0 % LVAd ap2 33.2 cm\S\2 LVLd ap2 8.7 cm EDV(MOD-sp2) 105.2 ml EDV(sp2-el) 107.4 ml LVAs ap2 19.1 cm\S\2 LVLs ap2 7.5 cm ESV(MOD-sp2) 44.8 ml ESV(sp2-el) 41.5 ml EF(MOD-sp2) 57.4 % EF(sp2-el) 61.4 % LVLd %diff -3.16 % EDV(MOD-bp) 98.1 ml LVLs %diff 6.3 % ESV(MOD-bp) 40.5 ml EF(MOD-bp) 58.7 % SV(MOD-sp4) 54.3 ml SI(MOD-sp4) 24.2 ml/m\S\2 SV(MOD-sp2) 60.4 ml SI(MOD-sp2) 26.9 ml/m\S\2 SV(MOD-bp) 57.6 ml SI(MOD-bp) 25.7 ml/m\S\2 SV(sp4-el) 58.6 ml SI(sp4-el) 26.1 ml/m\S\2 SV(sp2-el) 65.9 ml SI(sp2-el) 29.4 ml/m\S\2 Doppler Measurements and Calculations MV E max francois 87.8 cm/sec MV A max francois 98.1 cm/sec MV E/A 0.90 MV dec time 0.37 sec Ao V2 max 118.1 cm/sec Ao max PG 5.6 mmHg Ao max PG (full) 1.7 mmHg LV V1 max PG 3.9 mmHg LV V1 max 99.0 cm/sec
--- NOTE | 2016-05-28 14:41 | PROGRESS NOTE ---
DATE: 05/28/2016 DATE: 05/28/2016. I saw Serjio today. I know him from outpatient visits regarding his polyneuropathy, likely secondary to diabetes and the fact that he had a cerebrovascular event evaluated at [facility] back in December after TPA was administered at [place]. He claims his right side was weak and he was discharged from [facility] on aspirin and did well. He is now presenting with left-sided weakness of his face and then another event where the left arm and leg became weak and he has been found on an outpatient MRI to have 2 infarcts, 1 in the right felisha and 1 in the right frontal area, both of which could contribute to the left side apparent and indeed today on exam he has mild dysarthria, left upper motor neuron facial paresis to a mild degree and clumsiness of the leg more than the left arm with some weakness on movements of all muscles of the left leg. Sensory examination is consistent with his polyneuropathy. We do not have an actual film of the MRI done outpatient with Dr. Palacios and Lanette Kc PAC have offered interpretations on their consult note of yesterday. 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 There is critical stenosis and near occlusion of left vertebral artery, multilevel arterial occlusive changes and basilar posterior cerebral circulations fed by the posterior communicators and left middle cerebral artery system fed by the right carotid system with apparent occlusion of the left M1 segment. Unfortunately, not much of this explains the right felisha and right frontal infarctions but certainly may have explained his issues last fall with a right-sided weakness. Certainly the basilar artery issues could explain a small event, but he may also have a small vessel disease superimposed. One of the issues brought up is whether he does have paroxysmal atrial fibrillation and indeed this may be another variable but at this time with multilevel intracranial atherosclerotic changes and probable underlying small vessel disease this probably becomes less likely. To some degree the issue is academic as the treatment will be dual antiplatelet treatment and right now he is on this. In light of the intracranial disease, I would keep this on board indefinitely rather than going with 3-month issue. Currently, the stroke has put him off limits for his anticipated left knee surgery and he is concerned about some dental work that he may need to have done. I think this could probably be put off for a while unless it is really urgent as I would prefer to keep this man on antiplatelet drugs for at least 3 months before doing anything elective and probably 6 months before he has a major procedure. I think he is going to need rehabilitation time as I am not sure he is stable on that left leg for various reasons, i.e. the stroke and the arthritis and of course the effects of the polyneuropathy which have affected his gait to some degree for the last several years. I will check back with him tomorrow, but for now I do not have any other suggestions. On outpatient basis I think he may need a CardioNet or Zio recording mentioned by Dr. Beckham and LENO Sargent
--- NOTE | 2016-05-28 17:04 | Progress Note ---
Medicine Progress Note Date & Time of Visit: May 28, 2016 at 16:41. Subjective Pt was seen and examined he was coming for the bathroom he said that he feels fine he said last night he urinated in his bed he said that his PCP increased his oxybutynin to 10mg recently he denies any chest pain, palpitation and SOB Objective Last 8 Hrs Date Time Temp Pulse Resp B/P Pulse Ox O2 Delivery O2 Flow Rate FiO2 05/28/16 15:05 36.3 69 20 149/84 95 Room Air 05/28/16 14:10 70 05/28/16 12:00 Room Air Physical Exam: General- no acute distress Head- atraumatic Eyes- PERRL, EOMI ENT- oropharynx clear Neck- supple, no JVD Lungs- clear to auscultation and percussion Heart- regular rhythm Abdomen- normal bowel sounds, soft Extremities- no pretibial edema, no calf tenderness Neuro- alert, oriented x 3; PERRL, EOMI; left facial droop; strength decrease in Left side Skin- warm & dry Laboratory Results: Last 24 Hours Test 05/27/16 20:12 05/28/16 06:40 05/28/16 07:03 05/28/16 11:29 Bedside Glucose 150 mg/dl 127 mg/dl 133 mg/dl White Blood Count 10.17 K/uL Red Blood Count 5.18 M/uL Hemoglobin 14.8 g/dL Hematocrit 42.5 % Mean Corpuscular Volume 82.0 fL Mean Corpuscular Hemoglobin 28.6 pg Mean Corpuscular Hemoglobin Concent 34.8 g/dl Platelet Count 262 K/uL Mean Platelet Volume 9.1 fL Neutrophils (%) (Auto) 55.1 % Lymphocytes (%) (Auto) 32.2 % Monocytes (%) (Auto) 9.3 % Eosinophils (%) (Auto) 2.7 % Basophils (%) (Auto) 0.5 % Neutrophils # (Auto) 5.61 K/uL Lymphocytes # (Auto) 3.27 K/uL Monocytes # (Auto) 0.95 K/uL Eosinophils # (Auto) 0.27 K/uL Basophils # (Auto) 0.05 K/uL RDW Standard Deviation 41.3 fL RDW Coefficient of Variation 13.8 % Immature Granulocyte % (Auto) 0.2 % Immature Granulocyte # (Auto) 0.02 K/uL Sodium Level 142 mmol/L Potassium Level 3.8 mmol/L Chloride Level 107 mmol/L Carbon Dioxide Level 25 mmol/L Anion Gap 10.0 mmol/L Blood Urea Nitrogen 16 mg/dl Creatinine 0.91 mg/dl Est Creatinine Clear Calc Drug Dose 87.0 ml/min Estimated GFR () 95.9 Estimated GFR (Non- 82.7 BUN/Creatinine Ratio 17.3 Random Glucose 141 mg/dl Calcium Level 9.6 mg/dl Triglycerides Level 74 mg/dl Cholesterol Level 125 mg/dl HDL Cholesterol 63 mg/dl LDL Cholesterol, Calculated 47 mg/dl VLDL Cholesterol, Calculated 15 mg/dl Cholesterol/HDL Ratio 2.0 Test 05/28/16 16:18 Bedside Glucose 131 mg/dl Assessment & Plan Recurrent cerebrovascular accident. Outpatient MRI showed Acute to subacute-aged small vessel infarct of the right ventral felisha. No hemorrhagic transformation. There is also a 2-3 mm subacute -aged infarct in the right frontal white matter MRA of neck showed . Occlusion and/or near occlusion left vertebral artery. Multilevel arterial occlusive change of the basilar. 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 Multilevel arterial occlusive change basilar and posterior cerebral circulation fed via the posterior communicator's. Left middle cerebral system is fed via left carotid system with apparent occlusion left left M1 segment . Echo * There is mild concentric left ventricular hypertrophy. * Left ventricular systolic function is normal. * Ejection Fraction = 60-65%. * Grade I diastolic dysfunction, (abnormal relaxation pattern). * The right ventricular systolic function is normal. * The left atrial size is normal. * Right atrial size is normal. * No significant vavular pathology. The interatrial septum is intact with no evidence for an atrial septal defect Continue Asa and plavix Continue PT/OT waiting for placement to rehab Urinary incontinence Pt said that it is getting worst discussed with Urology that will see pt outpatient once discharge from the hospital His oxybutynin was increased to 10mg by his pcp, will change it. HTN Allow permissive HTN due to the stroke continue monitor BP . Dyslipidemia continue on statin LDL at goal DM2 Hba1c 7.3 on (05/27/16) Continue monitor BS Severe OA of L knee Scheduled for knee surgery in June Will need to cancel any elective surgery because the risk for recurrent stroke after odds ratio for adverse event of surgery after stroke 0-3 months 14. 2 3-6 months 4.8 6-12 months 2.5 levels off after 9 months DVT px on Lovenox subq CODE STATUS FULL CODE Current Inpatient Medications: Current Inpatient Medications Medications (Trade) Dose Ordered Sig/Effie Route Start Time Stop Time Status Last Admin Dose Admin Enoxaparin Sodium (Lovenox Inj) 40 mg Q24H SC 05/27/16 09:00 06/26/16 08:59 05/28/16 08:24 40 MG Acetaminophen (Tylenol Tab) 650 mg Q4H PRN PO 05/27/16 03:00 06/26/16 02:59 Nitroglycerin (Nitrostat Tab) 0.4 mg UD PRN SL 05/27/16 03:00 06/26/16 02:59 Insulin Aspart (novoLOG ASPART) SLIDING SCALE If C... ACHS SC 05/27/16 07:00 06/26/16 06:59 Glucose (Glucose 40% Gel) 15-30 GRAMS 15 GRAMS... UD PRN PO 05/27/16 03:00 06/26/16 02:59 Glucose (Glucose Chew Tab) 4-8 Tablets 4 Tabl... UD PRN PO 05/27/16 03:00 06/26/16 02:59 Dextrose (Dextrose 50% 50ML Syringe) 25-50ML OF 50% DW IV FOR... UD PRN IV 05/27/16 03:00 06/26/16 02:59 Glucagon (Glucagon Inj) 1 mg UD PRN SQ 05/27/16 03:00 06/26/16 02:59 Miscellaneous Information (Pharmacist Discharge Med Rec Consult) 1 ea UD PRN N/A 05/27/16 03:00 06/26/16 02:59 Clopidogrel Bisulfate (plAVix TAB) 75 mg DAILY PO 05/27/16 09:00 06/26/16 08:59 05/28/16 08:24 75 MG Gabapentin (Neurontin Cap) 100 mg TID PO 05/27/16 09:00 06/26/16 08:59 05/28/16 13:49 100 MG Simvastatin (Zocor Tab) 20 mg HS PO 05/27/16 21:00 06/26/16 20:59 05/27/16 20:36 20 MG Morphine Sulfate (MoRPHine SULFATE INJ) 4 mg Q3H PRN IV 05/27/16 03:00 06/10/16 02:59 Tramadol HCl (Ultram Tab) 25 mg Q6H PRN PO 05/27/16 03:00 06/26/16 02:59 Ondansetron HCl (Zofran Inj) 4 mg Q6H PRN IV 05/27/16 03:00 06/26/16 02:59 Insulin Glargine (Lantus Solostar Pen) 5 unit DAILY SC 05/28/16 09:00 06/27/16 08:59 05/28/16 08:45 5 UNIT Aspirin (Ecotrin Tab) 81 mg QAM PO 05/28/16 09:00 06/27/16 08:59 05/28/16 08:25 81 MG Gadopentetate Dimeglumine (Magnevist) 20 ml UD PRN IV 05/27/16 22:15 05/31/16 22:14 Oxybutynin Chloride (Ditropan-Xl Tab) 5 mg HS PO 05/28/16 21:00 06/27/16 20:59
[2016-05-28] MEDS ORDERED: OXYBUTYNIN CHLORIDE 5 MG TABCR PO SCH (21:00)
[2016-05-28] MEDS: SIMVASTATIN 20 MG TAB PO SCH (21:16)
[2016-05-28] MEDS: OXYBUTYNIN CHLORIDE 5 MG TABCR PO SCH (21:16)
[2016-05-29] VITALS (8 sets, daily range): BP systolic 125–156; BP diastolic 73–80; PULSE 52–67; TEMP 36.4–36.7; O2SAT 95–98
[2016-05-29] MEDS: INSULIN ASPART 100 UNITS/ML 3 ML PEN SC SCH ×4 (07:00→21:00)
[2016-05-29] MEDS: CLOPIDOGREL BISULFATE 75 MG TAB PO SCH (08:07)
[2016-05-29] MEDS: ASPIRIN 81 MG ECTAB PO SCH (08:07)
[2016-05-29] MEDS: GABAPENTIN 100 MG CAP PO SCH ×3 (08:08→20:17)
[2016-05-29] MEDS: ENOXAPARIN 40 MG/0.4 ML SYR SC SCH (08:08)
[2016-05-29] MEDS: INSULIN GLARGINE SOLOSTAR 100 UNITS/ML 3 ML PEN SC SCH (08:10)
--- NOTE | 2016-05-29 11:54 | PROGRESS NOTE ---
DATE: 05/29/2016 DATE: 05/29/2016. Lior looks a little better today. He was able to ambulate, but he is limited by the pain in his left knee in addition to the mild weakness induced by his stroke in the felisha. He still has a mild left upper motor neuron facial and some clumsiness of the left hand and the plans are I suppose to send him off to [facility] probably Tuesday or Tuesday. My suspicions are he will not be there for more than a week and then will be home. I was in error yesterday in stating that his deficits back in December involved the right side. They actually were left-sided weakness and there must have been again some issues in the right brainstem implying to me there is some localized small vessel disease in that area. He does have a number of intracranial stenoses and some filling of his left middle cerebral from the right side in addition to a near occlusion of the left vertebral artery. 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 Again, because of the somewhat atypical location of his infarcts and relative to his intracranial circulation deficits we still will probably need to do an outpatient CardioNet or Zio patch recording device and this can be arranged on an outpatient basis after discharge from [facility]. I will continue to see him and will outline plans for his return visit to neurology closer to the time and his transfer to [facility] is being arranged.
--- NOTE | 2016-05-29 17:11 | Progress Note ---
Medicine Progress Note Date & Time of Visit: May 29, 2016 at 17:03. Subjective Pt was seen and examined Sitting comfortable with no distress Pt said that he feels fine he walked with PT yesterday denies any chest pain, palpitation, dizziness and sob Objective Last 8 Hrs Date Time Temp Pulse Resp B/P Pulse Ox O2 Delivery O2 Flow Rate FiO2 05/29/16 16:00 Room Air 05/29/16 15:33 36.6 56 20 138/78 96 05/29/16 12:00 Room Air 05/29/16 11:37 36.7 63 20 125/75 98 Room Air 05/29/16 10:30 64 96 Physical Exam: General- no acute distress Head- atraumatic Eyes- PERRL, EOMI ENT- oropharynx clear Neck- supple, no JVD Lungs- clear to auscultation and percussion Heart- regular rhythm Abdomen- normal bowel sounds, soft Extremities- no pretibial edema, no calf tenderness Neuro- alert, oriented x 3; PERRL, EOMI; left facial droop; strength decrease in Left side Skin- warm & dry Laboratory Results: Last 24 Hours Test 05/28/16 20:37 05/29/16 06:32 05/29/16 11:16 05/29/16 16:08 Bedside Glucose 156 mg/dl 128 mg/dl 123 mg/dl 109 mg/dl Assessment & Plan Recurrent cerebrovascular accident. Outpatient MRI showed Acute to subacute-aged small vessel infarct of the right ventral felisha. No hemorrhagic transformation. There is also a 2-3 mm subacute -aged infarct in the right frontal white matter MRA of neck showed . Occlusion and/or near occlusion left vertebral artery. Multilevel arterial occlusive change of the basilar. 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 Multilevel arterial occlusive change basilar and posterior cerebral circulation fed via the posterior communicator's. Left middle cerebral system is fed via left carotid system with apparent occlusion left left M1 segment . Echo * There is mild concentric left ventricular hypertrophy. * Left ventricular systolic function is normal. * Ejection Fraction = 60-65%. * Grade I diastolic dysfunction, (abnormal relaxation pattern). * The right ventricular systolic function is normal. * The left atrial size is normal. * Right atrial size is normal. * No significant vavular pathology. The interatrial septum is intact with no evidence for an atrial septal defect Continue Asa and plavix Continue PT/OT waiting for placement to [facility] for rehab Consider outpatient CardioNet or Zio patch recording device once discharge from rehab, can be arranged as outpatient Urinary incontinence discussed with Urology that will see pt outpatient once discharge from the hospital Oxybutynin was increased to 10mg last night incontinence is improved HTN Allow permissive HTN due to the stroke continue monitor BP . Dyslipidemia continue on statin LDL at goal DM2 Hba1c 7.3 on (05/27/16) Continue monitor BS Severe OA of L knee Scheduled for knee surgery in June Will need to cancel any elective surgery because the risk for recurrent stroke after odds ratio for adverse event of surgery after stroke 0-3 months 14. 2 3-6 months 4.8 6-12 months 2.5 levels off after 9 months DVT px on Lovenox subq CODE STATUS FULL CODE Current Inpatient Medications: Current Inpatient Medications Medications (Trade) Dose Ordered Sig/Effie Route Start Time Stop Time Status Last Admin Dose Admin Enoxaparin Sodium (Lovenox Inj) 40 mg Q24H SC 05/27/16 09:00 06/26/16 08:59 05/29/16 08:08 40 MG Acetaminophen (Tylenol Tab) 650 mg Q4H PRN PO 05/27/16 03:00 06/26/16 02:59 Nitroglycerin (Nitrostat Tab) 0.4 mg UD PRN SL 05/27/16 03:00 06/26/16 02:59 Insulin Aspart (novoLOG ASPART) SLIDING SCALE If C... ACHS SC 05/27/16 07:00 06/26/16 06:59 Glucose (Glucose 40% Gel) 15-30 GRAMS 15 GRAMS... UD PRN PO 05/27/16 03:00 06/26/16 02:59 Glucose (Glucose Chew Tab) 4-8 Tablets 4 Tabl... UD PRN PO 05/27/16 03:00 06/26/16 02:59 Dextrose (Dextrose 50% 50ML Syringe) 25-50ML OF 50% DW IV FOR... UD PRN IV 05/27/16 03:00 06/26/16 02:59 Glucagon (Glucagon Inj) 1 mg UD PRN SQ 05/27/16 03:00 06/26/16 02:59 Miscellaneous Information (Pharmacist Discharge Med Rec Consult) 1 ea UD PRN N/A 05/27/16 03:00 06/26/16 02:59 Clopidogrel Bisulfate (plAVix TAB) 75 mg DAILY PO 05/27/16 09:00 06/26/16 08:59 05/29/16 08:07 75 MG Gabapentin (Neurontin Cap) 100 mg TID PO 05/27/16 09:00 06/26/16 08:59 05/29/16 13:58 100 MG Simvastatin (Zocor Tab) 20 mg HS PO 05/27/16 21:00 06/26/16 20:59 05/28/16 21:16 20 MG Morphine Sulfate (MoRPHine SULFATE INJ) 4 mg Q3H PRN IV 05/27/16 03:00 06/10/16 02:59 Tramadol HCl (Ultram Tab) 25 mg Q6H PRN PO 05/27/16 03:00 06/26/16 02:59 Ondansetron HCl (Zofran Inj) 4 mg Q6H PRN IV 05/27/16 03:00 06/26/16 02:59 Insulin Glargine (Lantus Solostar Pen) 5 unit DAILY SC 05/28/16 09:00 06/27/16 08:59 05/29/16 08:10 5 UNIT Aspirin (Ecotrin Tab) 81 mg QAM PO 05/28/16 09:00 06/27/16 08:59 05/29/16 08:07 81 MG Gadopentetate Dimeglumine (Magnevist) 20 ml UD PRN IV 05/27/16 22:15 05/31/16 22:14 Oxybutynin Chloride (Ditropan-Xl Tab) 10 mg HS PO 05/28/16 21:00 06/27/16 20:59 05/28/16 21:16 10 MG
[2016-05-29] MEDS: OXYBUTYNIN CHLORIDE 5 MG TABCR PO SCH (20:16)
[2016-05-29] MEDS: SIMVASTATIN 20 MG TAB PO SCH (20:17)
[2016-05-30] VITALS (7 sets, daily range): BP systolic 128–142; BP diastolic 70–79; PULSE 54–59; TEMP 36.3–36.6; O2SAT 96–98
[2016-05-30] MEDS: INSULIN ASPART 100 UNITS/ML 3 ML PEN SC SCH ×3 (07:00→16:15)
[2016-05-30] MEDS: ASPIRIN 81 MG ECTAB PO SCH (08:03)
[2016-05-30] MEDS: CLOPIDOGREL BISULFATE 75 MG TAB PO SCH (08:03)
[2016-05-30] MEDS: ENOXAPARIN 40 MG/0.4 ML SYR SC SCH (08:04)
[2016-05-30] MEDS: GABAPENTIN 100 MG CAP PO SCH ×2 (08:04→14:12)
[2016-05-30] MEDS: INSULIN GLARGINE SOLOSTAR 100 UNITS/ML 3 ML PEN SC SCH (08:08)
--- NOTE | 2016-05-30 11:31 | PROGRESS NOTE ---
DATE: 05/30/2016 DATE: 05/30/2016. Lior looks the same. He thinks his left knee is a little more painful and he is having more trouble walking on the left leg because of that. The left hand is still clumsy and he still has a left upper motor neuron facial paresis. It looks as though [facility] is going to take him, it is not clear when. For now all my recommendations remain unchanged, i.e. he should be discharged on aspirin and Plavix. He could see me in neurology several weeks after he is discharged from rehabilitation and we will try to make arrangements to have either CardioNet or Zio patch recording obtained to assess the potential presence of paroxysmal atrial fibrillation, but frankly I think this man has a lot of intracranial vascular disease, I think this is sufficient to explain his deficits, although it is curious that he has had 2 strokes in 2 different arterial distributions occurring at the same time which then again raises the possibility of an embolic source and 1 in the aorta or in cardiac chambers. For now, however, we have insufficient justification to place him on either a novel anticoagulant or Coumadin. LIBBY
--- NOTE | 2016-05-30 14:35 | Progress Note ---
Medicine Progress Note Date & Time of Visit: May 30, 2016 at 14:26. Subjective Pt was seen and examined sitting in bed comfortable with no distress Pt said that he feels bored continue to feels weak in his left side denies any chest pain, palpitation, dizziness and SOB Objective Last 8 Hrs Date Time Temp Pulse Resp B/P Pulse Ox O2 Delivery O2 Flow Rate FiO2 05/30/16 12:30 36.5 55 133/77 98 Room Air 05/30/16 12:00 Room Air 05/30/16 08:02 36.6 54 16 142/79 96 Room Air 05/30/16 08:00 Room Air Physical Exam: General- no acute distress Head- atraumatic Eyes- PERRL, EOMI ENT- oropharynx clear Neck- supple, no JVD Lungs- clear to auscultation and percussion Heart- regular rhythm Abdomen- normal bowel sounds, soft Extremities- no pretibial edema, no calf tenderness Neuro- alert, oriented x 3; PERRL, EOMI; left facial droop; strength decrease in Left side Skin- warm & dry Laboratory Results: Last 24 Hours Test 05/29/16 16:08 05/29/16 21:14 05/30/16 06:25 05/30/16 11:21 Bedside Glucose 109 mg/dl 143 mg/dl 131 mg/dl 119 mg/dl Assessment & Plan Recurrent cerebrovascular accident. Outpatient MRI showed Acute to subacute-aged small vessel infarct of the right ventral felisha. No hemorrhagic transformation. There is also a 2-3 mm subacute -aged infarct in the right frontal white matter MRA of neck showed . Occlusion and/or near occlusion left vertebral artery. Multilevel arterial occlusive change of the basilar. 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 Multilevel arterial occlusive change basilar and posterior cerebral circulation fed via the posterior communicator's. Left middle cerebral system is fed via left carotid system with apparent occlusion left left M1 segment . Echo * There is mild concentric left ventricular hypertrophy. * Left ventricular systolic function is normal. * Ejection Fraction = 60-65%. * Grade I diastolic dysfunction, (abnormal relaxation pattern). * The right ventricular systolic function is normal. * The left atrial size is normal. * Right atrial size is normal. * No significant vavular pathology. The interatrial septum is intact with no evidence for an atrial septal defect Continue Asa and plavix Continue PT/OT waiting for placement to [facility] for rehab Consider outpatient CardioNet or Zio patch recording device once discharge from rehab, can be arranged as outpatient Follow up with Neuro once discharge from rehab stable Urinary incontinence discussed with Urology that will see pt outpatient once discharge from the hospital Oxybutynin was increased to 10mg last night incontinence is improved Stable HTN Allow permissive HTN due to the stroke continue monitor BP . Dyslipidemia continue on statin LDL at goal DM2 Hba1c 7.3 on (05/27/16) Continue monitor BS Severe OA of L knee Scheduled for knee surgery in June Will need to cancel any elective surgery because the risk for recurrent stroke after odds ratio for adverse event of surgery after stroke 0-3 months 14. 2 3-6 months 4.8 6-12 months 2.5 levels off after 9 months DVT px on Lovenox subq CODE STATUS FULL CODE Disposition Waiting for placement to [facility] for rehab Consultants: Neuro PT/OT Current Inpatient Medications: Current Inpatient Medications Medications (Trade) Dose Ordered Sig/Effie Route Start Time Stop Time Status Last Admin Dose Admin Enoxaparin Sodium (Lovenox Inj) 40 mg Q24H SC 05/27/16 09:00 06/26/16 08:59 05/30/16 08:04 40 MG Acetaminophen (Tylenol Tab) 650 mg Q4H PRN PO 05/27/16 03:00 06/26/16 02:59 Nitroglycerin (Nitrostat Tab) 0.4 mg UD PRN SL 05/27/16 03:00 06/26/16 02:59 Insulin Aspart (novoLOG ASPART) SLIDING SCALE If C... ACHS SC 05/27/16 07:00 06/26/16 06:59 Glucose (Glucose 40% Gel) 15-30 GRAMS 15 GRAMS... UD PRN PO 05/27/16 03:00 06/26/16 02:59 Glucose (Glucose Chew Tab) 4-8 Tablets 4 Tabl... UD PRN PO 05/27/16 03:00 06/26/16 02:59 Dextrose (Dextrose 50% 50ML Syringe) 25-50ML OF 50% DW IV FOR... UD PRN IV 05/27/16 03:00 06/26/16 02:59 Glucagon (Glucagon Inj) 1 mg UD PRN SQ 05/27/16 03:00 06/26/16 02:59 Miscellaneous Information (Pharmacist Discharge Med Rec Consult) 1 ea UD PRN N/A 05/27/16 03:00 06/26/16 02:59 Clopidogrel Bisulfate (plAVix TAB) 75 mg DAILY PO 05/27/16 09:00 06/26/16 08:59 05/30/16 08:03 75 MG Gabapentin (Neurontin Cap) 100 mg TID PO 05/27/16 09:00 06/26/16 08:59 05/30/16 14:12 100 MG Simvastatin (Zocor Tab) 20 mg HS PO 05/27/16 21:00 06/26/16 20:59 05/29/16 20:17 20 MG Morphine Sulfate (MoRPHine SULFATE INJ) 4 mg Q3H PRN IV 05/27/16 03:00 06/10/16 02:59 Tramadol HCl (Ultram Tab) 25 mg Q6H PRN PO 05/27/16 03:00 06/26/16 02:59 Ondansetron HCl (Zofran Inj) 4 mg Q6H PRN IV 05/27/16 03:00 06/26/16 02:59 Insulin Glargine (Lantus Solostar Pen) 5 unit DAILY SC 05/28/16 09:00 06/27/16 08:59 05/30/16 08:08 5 UNIT Aspirin (Ecotrin Tab) 81 mg QAM PO 05/28/16 09:00 06/27/16 08:59 05/30/16 08:03 81 MG Gadopentetate Dimeglumine (Magnevist) 20 ml UD PRN IV 05/27/16 22:15 05/31/16 22:14 Oxybutynin Chloride (Ditropan-Xl Tab) 10 mg HS PO 05/28/16 21:00 06/27/16 20:59 05/29/16 20:16 10 MG
[2016-05-30] MEDS ORDERED: ASPEC81 PO (16:19)
[2016-05-30] MEDS ORDERED: DTRSR5 PO (16:19)
--- NOTE | 2016-05-30 16:31 | Discharge Instructions ---
Discharge Instructions Admission Reason for Admission: Stroke Discharge Discharge Diagnosis / Problem: Recurrent cerebrovascular accident, Urinary incontinence, OA of L Knee, DM Discharge Goals Goal(s): Decrease discomfort, Improve function, Increase independence Activity Recommendations Activity Limitations: resume your previous activity (as tolerated) . Instructions / Follow-Up Instructions / Follow-Up Discharge to [facility] for rehab Follow up with neurology once discharge from rehab Follow up with your primary care provider once discharge from rehab Continue aspirin and plavix Continue PT/OT Fall precaution Current Hospital Diet Patient's current hospital diet: Diabetes Type 2 Diet Discharge Diet Recommended Diet: Diabetes Type 2 Diet Pending Studies Studies pending at discharge: no Laboratory Results Hemoglobin A1c Test 05/27/16 00:13 Range/Units Estimated Average Glucose 163 mg/dl Hemoglobin A1c 7.3 H 4.5-5.6 % Lipid Panel Test 05/28/16 07:03 Range/Units Triglycerides Level 74 0-150 mg/dl Cholesterol Level 125 0-200 mg/dl HDL Cholesterol 63 mg/dl Cholesterol/HDL Ratio 2.0 LDL Cholesterol, Calculated 47 mg/dl Medical Emergencies . Who to Call and When: Medical Emergencies: If at any time you feel your situation is an emergency, please call 911 immediately. . Non-Emergent Contact Non-Emergency issues call your: Primary Care Provider Call Non-Emergent contact if: you have any medication questions . . "Provider Documentation" section prepared by Angela Delacruz. VTE Core Measure Inpt VTE Proph given/why not?: Enoxaparin (Lovenox)SQ
--- NOTE | 2016-05-30 16:46 | Discharge Summary ---
Discharge Summary Admission Date: May 27, 2016 at 02:08 Discharge Date: May 30, 2016 Discharge Disposition: Rehab Principal Diagnosis: Recurrent CVA Secondary Diagnoses/Problems: Recurrent cerebrovascular accident Urinary incontinence Severe OA of L Knee DM type 2 Dyslipidemia HTN Procedures: [~ rep ct add3]] NECK MRA HISTORY: Mental status change stroke TECHNIQUE: [id number] and gadolinium-enhanced MRA of the neck was performed both before and after the intravenous administration of contrast. All measurements were calculated based on NASCET criteria. COMPARISON STUDY: None. FINDINGS: The aortic arch and proximal great vessels are widely patent. No complete occlusion and/or occlusion left vertebral vessel. Paravertebral vessel is dominant. Multilevel arterial occlusive change of the basilar. Common carotids show no major stenotic process. Indication show mild atherosclerotic change. No significant stenotic change of the carotid system is felt present. Mild arterial occlusive change is present. IMPRESSION: 1. Occlusion and/or near occlusion left vertebral artery. 2. Multilevel arterial occlusive change of the basilar. 3. No major stenotic process of the carotid systems Brain MRA HISTORY: Stroke Stroke - Attention to [place] TECHNIQUE: 3-D [id number] MRA of the brain was performed without contrast. COMPARISON STUDY: None. FINDINGS: Occlusion or near occlusion left vertebral artery. Paravertebral is artery is dominant. Significant multilevel arterial occlusive change of the basilar. Posterior cerebrals filled primarily via the posterior communicator's. Anterior middle cerebral circulation is remarkable for the anterior cerebral circulation primarily originating from the right carotid system. Findings of mild multilevel arterial occlusive change of the middle cerebral arterial vasculature. IMPRESSION: 1. 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 2. 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 3. Multilevel arterial occlusive change basilar and posterior cerebral circulation fed via the posterior communicator's. 4. Left middle cerebral system is fed via left carotid system with apparent occlusion left left M1 segment . 5 mild multilevel arterial occlusive change of the anterior and middle cerebral circulations Electronically signed by: Aaron Alvarado M.D. 05/27/2016 10:[address] SCAN OF THE BRAIN WITHOUT IV CONTRAST CLINICAL HISTORY: Change in mental status. Weakness. COMPARISON STUDY: No priors. TECHNIQUE: Unenhanced axial CT scan of the brain is performed from the vertex to the skull base. CT DOSE: 614.27 mGy.cm FINDINGS: Brain parenchyma: There are age-related involutional changes noting moderate patchy subcortical and periventricular microangiopathic change. There is no hemorrhage, mass effect, or evidence of acute territorial ischemia by CT criteria. Luu-white matter is preserved. No extra-axial fluid collection is seen. Ventricles, sulci, cisterns: Prominent secondary to involutional change. Intracranial vasculature: There is atherosclerotic calcification of the cavernous carotid and vertebral arteries. Calvarium: Unremarkable. Sinuses and mastoids: The visualized paranasal sinuses are clear. The mastoid air cells are well pneumatized. Orbits: The bony orbits are grossly intact. IMPRESSION: Senescent changes as above with no hemorrhage, mass effect, or evidence of acute territorial ischemia by CT criteria. Electronically signed by: Aaron Castorena M.D. 05/27/2016 7:15 AM Dictated Date/Time: 05/27/2016 7:13 AM Consultations: Neuro PT/OT Medication Reconciliation New Medications: Aspirin (Aspirin EC Low Dose) 81 Mg Ectab 81 MG PO QAM for 30 Days, #30 Oxybutynin Chloride (Oxybutynin Chloride ER) 5 Mg Tabcr 10 MG PO HS for 30 Days Continued Medications: Amlodipine (Norvasc) 5 Mg Tab 5 MG PO DAILY, TAB Cholecalciferol (Vitamin D3) 2,000 Unit Cap 1 CAP PO DAILY for 30 Days, #30 CAP 3 Refills Clopidogrel (Plavix) 75 Mg Tab 75 MG PO DAILY, TAB Ferrous Sulfate (Iron) 325 Mg Tab Folic Oonb-Ofplzplvhe-Klxrbgtw (Folbic) 1 Tab Tab 1 TAB PO DAILY for 90 Days, #90 TAB 1 Refill Gabapentin (Neurontin) 100 Mg Cap 100 MG PO, CAP Losartan Potassium (Cozaar) 50 Mg Tab 1 TAB PO DAILY for 30 Days, #30 TAB 5 Refills Metformin Hcl (Glucophage) 500 Mg Tab 500 MG PO BID, TAB Simvastatin (Zocor) 20 Mg Tab 1 TAB PO DAILY for 90 Days, #90 TAB 1 Refill Discontinued Medications: Oxybutynin Chloride (Oxybutynin Chloride Er) 5 Mg Tab 1 TAB PO DAILY for 30 Days, #30 TAB 5 Refills Admission Information HPI (per Admitting provider): CHIEF COMPLAINT: Stroke-like symptoms, abnormal MRI. 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 Recent confinement at [facility] for right pontine ischemic CVA sp TPA at [facility] ER last 12/2015. Px presented w/ some left sided weakness, slurred speech symptoms along w/ dysphasia/L blurred vision sx as per px/. Marked improvement of neurologic deficits. Some residual weakness on LUE as per px. Px discharged on aspirin and statin which patient has been compliant with. Three days ago, patient was noted by to have some drooping on the L lower face. px also noted some gait imbalance, unsteadiness leading to a fall. Some dizziness described as lightheadedness. No visual, vertigo sx. L side weaker than usual as per px. Px later seen at PCP's office that day. mild L facial droop on PCP exam as per note. Plavix added to px ASA. Outpx MRI brain, carotid dopplers scheculed yesterday at [facility]. Minimal improvement in deficits as per px/. Two nights ago px noted bladder incontinence. No fever/chills. MRI of the brain yesterday showed acute to subacute small vessel infarct right ventral felisha, 2-3 mm subacute age infarct right frontal white matter, chronic small vessel infarcts right lateral felisha and left thalamus. Recommend MRI head and neck for further evaluation of underlying etiology of infarcts. Large vertebral artery appears hypoplastic and the is slightly diminished suggestive of slow flow of proximal stenosis, occlusion. Carotid Dopplers were also done which showed bilateral stenosis of the ICA less than 50%. PX sent to the ER by PCP for abn MRI results. Physical Exam (per Admitting): PHYSICAL EXAMINATION: VITAL SIGNS: Blood pressure was noted to be 129/71, pulse rate 70, RR 18, temperature 36.5, sats 94 on room air. GENERAL: Noted to be slightly anxious, no respiratory distress, minimal dysarthria. SKIN: Normal color. HEENT: [place] palpebral conjunctiva. Dry mucosa. subtle facial droop, left. NECK: Supple, no JVD. CHEST: Clear to auscultation. HEART: RRR, no murmur. ABDOMEN: Soft. EXTREMITIES: No edema, chronic tenderness on the left knee. NEUROLOGIC: Subtle facial asymmetry, decreased strength on the left upper extremity; decreased strength on the LLE vs RLE (chronic as per px from chronic L knee OA as per px); gait and stance not assessed no pronator drift Hospital Course Recurrent cerebrovascular accident. Outpatient MRI showed Acute to subacute-aged small vessel infarct of the right ventral felisha. No hemorrhagic transformation. There is also a 2-3 mm subacute -aged infarct in the right frontal white matter MRA of neck showed . Occlusion and/or near occlusion left vertebral artery. Multilevel arterial occlusive change of the basilar. 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 Multilevel arterial occlusive change basilar and posterior cerebral circulation fed via the posterior communicator's. Left middle cerebral system is fed via left carotid system with apparent occlusion left left M1 segment . Echo * There is mild concentric left ventricular hypertrophy. * Left ventricular systolic function is normal. * Ejection Fraction = 60-65%. * Grade I diastolic dysfunction, (abnormal relaxation pattern). * The right ventricular systolic function is normal. * The left atrial size is normal. * Right atrial size is normal. * No significant vavular pathology. The interatrial septum is intact with no evidence for an atrial septal defect Continue Asa and plavix Continue PT/OT waiting for placement to [facility] for rehab Consider outpatient CardioNet or Zio patch recording device once discharge from rehab, can be arranged as outpatient Follow up with Neuro once discharge from rehab stable Urinary incontinence discussed with Urology that will see pt outpatient once discharge from the hospital Oxybutynin was increased to 10mg last night incontinence is improved Stable HTN Allow permissive HTN due to the stroke continue monitor BP . Dyslipidemia continue on statin LDL at goal DM2 Hba1c 7.3 on (05/27/16) Continue monitor BS Severe OA of L knee Scheduled for knee surgery in June Will need to cancel any elective surgery because the risk for recurrent stroke after odds ratio for adverse event of surgery after stroke 0-3 months 14. 2 3-6 months 4.8 6-12 months 2.5 levels off after 9 months DVT px on Lovenox subq CODE STATUS FULL CODE Disposition Waiting for placement to [facility] for rehab Total time spent on discharge = 35 minutes This includes examination of the patient, discharge planning, medication reconciliation, and communication with other providers. Discharge Instructions Please take this sheet to every appointment for the next month Discharge Instructions Admission Reason for Admission: Stroke Discharge Discharge Diagnosis / Problem: Recurrent cerebrovascular accident, Urinary incontinence, OA of L Knee, DM Discharge Goals Goal(s): Decrease discomfort, Improve function, Increase independence Activity Recommendations Activity Limitations: resume your previous activity (as tolerated) . Instructions / Follow-Up Instructions / Follow-Up Discharge to [facility] for rehab Follow up with neurology once discharge from rehab Follow up with your primary care provider once discharge from rehab Continue aspirin and plavix Continue PT/OT Fall precaution Current Hospital Diet Patient's current hospital diet: Diabetes Type 2 Diet Discharge Diet Recommended Diet: Diabetes Type 2 Diet Pending Studies Studies pending at discharge: no Laboratory Results Hemoglobin A1c Test 05/27/16 00:13 Range/Units Estimated Average Glucose 163 mg/dl Hemoglobin A1c 7.3 H 4.5-5.6 % Lipid Panel Test 05/28/16 07:03 Range/Units Triglycerides Level 74 0-150 mg/dl Cholesterol Level 125 0-200 mg/dl HDL Cholesterol 63 mg/dl Cholesterol/HDL Ratio 2.0 LDL Cholesterol, Calculated 47 mg/dl Medical Emergencies . Who to Call and When: Medical Emergencies: If at any time you feel your situation is an emergency, please call 911 immediately. . Non-Emergent Contact Non-Emergency issues call your: Primary Care Provider Call Non-Emergent contact if: you have any medication questions . . "Provider Documentation" section prepared by Angela Delacruz. VTE Core Measure Inpt VTE Proph given/why not?: Enoxaparin (Lovenox)SQ [facility] Charles V., D.O.
== END 2016-05-30 19:24 | DRG 66 ==
LOC: ENRESERVDT → ENRESERVTM → C.EDB 23:42 → C.EDINP 05-27 02:08 → C.2T 05-27 11:22
PROVIDERS: ADMIT Internal Medicine; ATTEND Internal Medicine
DX: I63.9 Cerebral infarction, unspecified (principal); I65.23 Occlusion and stenosis of bilateral carotid arteries; I67.2 Cerebral atherosclerosis; R32 Unspecified urinary incontinence; N32.81 Overactive bladder; I10 Essential (primary) hypertension; E78.5 Hyperlipidemia, unspecified; E11.42 Type 2 diabetes mellitus with diabetic polyneuropathy; G47.33 Obstructive sleep apnea (adult) (pediatric); M17.12 Unilateral primary osteoarthritis, left knee; I44.0 Atrioventricular block, first degree; Z86.73 Personal history of transient ischemic attack (TIA), and cerebral infarction without residual deficits; Z85.46 Personal history of malignant neoplasm of prostate; Z90.79 Acquired absence of other genital organ(s); Z90.49 Acquired absence of other specified parts of digestive tract; Z79.02 Long term (current) use of antithrombotics/antiplatelets; Z79.82 Long term (current) use of aspirin; Z79.84 Long term (current) use of oral hypoglycemic drugs; Z79.899 Other long term (current) drug therapy; Z83.3 Family history of diabetes mellitus; Z82.49 Family history of ischemic heart disease and other diseases of the circulatory system; Z83.6 Family history of other diseases of the respiratory system; Z84.1 Family history of disorders of kidney and ureter; Z82.0 Family history of epilepsy and other diseases of the nervous system